=== PATIENT | male | born 1960 | race Hispanic/Latino ===

== ENCOUNTER 2017-05-12 10:08 | Inpatient (IN) | payer OTHER ==
[2017-05-12 10:11] VITALS: BMI 25.8
[2017-05-12] MEDS ORDERED: Lidocaine 2% Inj (20ml) ONE (10:15)
[2017-05-12] MEDS ORDERED: Midazolam 2 MG/2 ML VIAL ONE ×2 (10:17→10:39)
[2017-05-12] MEDS ORDERED: Iodixanol 320 MG/ML 200 ML BOTTLE IV ONE ×2 (10:18→11:06)
[2017-05-12] MEDS ORDERED: HEPARIN SODIUM/NS 2,000 ML IV ONE (10:18)
[2017-05-12] MEDS ORDERED: Iodixanol 320 MG/ML 100 ML BOTTLE IV ONE (10:18)
[2017-05-12] MEDS ORDERED: Metoprolol 1 mg/ml Inj IVP ONE ×2 (10:21→10:25)
[2017-05-12 10:28] LABS: BASO # 0.04 K/mm3 (0.0-2.0); BASO % 0.3 % (0.0-3.0); EOS # 0.1 (0.0-0.7); GRAN # 7.97 (1.4-6.5); GRAN % 64.4 % (50.0-68.0); HEMOGLOBIN 16.8 g/dL (14.0-18.0); LYMPH # 3.3 (1.2-3.4); LYMPH % 26.3 % (22.0-35.0); MEAN CELL VOLUME 88.1 fl (80.0-105.0); MEAN CORPUSCULAR HEMOGLOBIN 30.8 pg (25.0-35.0); MEAN CORPUSCULAR HGB CONC 34.9 g/dl (31.0-37.0); MEAN PLATELET VOLUME 9.8 fl (7.0-11.0); RBC 5.46 10^6/uL (3.5-6.1); RED CELL DISTRIBUTION WIDTH 13.5 % (11.5-14.5); WHITE BLOOD COUNT 12.4 10^3/ul (4.5-11.0)
--- NOTE | 2017-05-12 10:33 | ED PDOC ---
Arrival/HPI - General Chief Complaint: Chest Pain Time Seen by Provider: 05/12/17 10:09 Historian: Patient - History of Present Illness Time/Duration: Other (Last night) Symptom Onset: Sudden Symptom Course: Worsening Quality: Aching Severity Level: Severe Activities at Onset: Rest Associated Symptoms (Text): 05/12/17 10:30 Patient complains of waxing and waning aching chest pain beginning last night. Severe diaphoresis. No dyspnea. No nausea or vomiting. No dizziness. He has never experienced this previously. Past Medical History - Cardiac Hx Cardiac Disorders: No - Pulmonary Hx Respiratory Disorders: No - Neurological Hx Neurological Disorder: No - HEENT Hx HEENT Disorder: No - Renal Hx Renal Disorder: No - Endocrine/Metabolic Hx Hypothyroidism: Yes - Hematological/Oncological Hx Blood Disorders: No - Integumentary Hx Dermatological Disorder: No - Musculoskeletal/Rheumatological Hx Musculoskeletal Disorders: No - Gastrointestinal Hx Gastrointestinal Disorders: No - Genitourinary/Gynecological Hx Genitourinary Disorders: No - Psychiatric Hx Psychophysiologic Disorder: No Hx Substance Use: No Family/Social History - Physician Review Nursing Documentation Reviewed: Yes Family/Social History: Unknown Family HX Smoking Status: Never Smoked Hx Alcohol Use: Yes Frequency of alcohol use: Socially Hx Substance Use: No Allergies/Home Meds Allergies/Adverse Reactions: Allergies No Known Allergies Allergy (Verified 05/12/17 10:11) Home Medications: Home Meds Medication Instructions Recorded Confirmed Levothyroxine [Levoxyl] 0 mg PO DAILY 05/12/17 05/12/17 Review of Systems - Physician Review All systems were reviewed & negative as marked: Yes - Review of Systems Constitutional: absent: Fatigue, Fevers Respiratory: absent: SOB Cardiovascular: Chest Pain. absent: Syncope Gastrointestinal: absent: Abdominal Pain, Nausea, Vomiting Neurological: absent: Headache, Dizziness Physical Exam Vital Signs Temp Pulse Resp BP Pulse Ox 05/12/17 10:28 73 20 155/97 H 98 05/12/17 10:08 98 F 113 H 22 167/111 H 98 Temperature: Afebrile Blood Pressure: Hypertensive Pulse: Tachycardic Respiratory Rate: Normal Appearance: Positive for: Well-Appearing, Non-Toxic, Uncomfortable, Other ( Diaphoretic) Pain Distress: Severe Mental Status: Positive for: Alert and Oriented X 3 - Systems Exam Head: Present: Atraumatic, Normocephalic Pupils: Present: PERRL Extroacular Muscles: Present: EOMI Conjunctiva: Present: Normal Mouth: Present: Moist Mucous Membranes Pharnyx: No: ERYTHEMA, EXUDATE, TONSILS ENLARGED Neck: Present: Normal Range of Motion Respiratory/Chest: Present: Clear to Auscultation, Good Air Exchange, Decreased Breath Sounds. No: Respiratory Distress, Accessory Muscle Use Cardiovascular: Present: Regular Rate and Rhythm, Normal S1, S2, Tachycardic. No: Murmurs Abdomen: Present: Normal Bowel Sounds. No: Tenderness, Distention, Peritoneal Signs, Rebound, Guarding Upper Extremity: Present: Normal Inspection. No: Cyanosis, Edema Lower Extremity: Present: Normal Inspection. No: Edema Neurological: Present: GCS=15, CN II-XII Intact, Speech Normal Skin: Present: Warm, Normal Color, Diaphoretic. No: Dry, Rashes Psychiatric: Present: Alert, Oriented x 3, Normal Insight, Normal Concentration Medical Decision Making ED Course and Treatment: 05/12/17 10:32 EKG shows normal sinus rhythm rate approximately [address]ations V2 through V6. A code heart was called immediately upon the patient's arrival - RAD Interpretation Radiology Orders: 05/12/17 10:24 CHEST PORTABLE [RAD] Stat - Medication Orders Current Medication Orders: Atorvastatin Calcium (Lipitor) 80 mg PO DIN ALYCE Discontinued Medications Aspirin (Aspirin) 325 mg PO STAT STA Stop: 05/12/17 10:24 Heparin Sodium (Porcine) (Heparin) 5,000 units IVP STAT ONE PRN Reason: Protocol Stop: 05/12/17 10:27 Metoprolol Tartrate (Lopressor) 5 mg IVP ONCE ONE Stop: 05/12/17 10:26 Ticagrelor (Brilinta) 180 mg PO STAT STA Stop: 05/12/17 10:27 Disposition/Present on Arrival - Present on Arrival Any Indicators Present on Arrival: No History of DVT/PE: No History of Uncontrolled Diabetes: No Urinary Catheter: No History of Decub. Ulcer: No History Surgical Site Infection Following: None - Disposition Have Diagnosis and Disposition been Completed?: Yes Diagnosis: Myocardial infarction Disposition: HOSPITALIZED Disposition Time: 10:33 Patient Plan: Admission, ICU Condition: CRIT[facility] - Follow up with primary
[2017-05-12 10:35] LABS: PARTIAL THROMBOPLASTIN TIME 28.3 Seconds (25.1-36.5); PROTHROMBIN TIME 11.5 SECONDS (9.4-12.5)
[2017-05-12 10:40] LABS: ALB/GLOB RATIO 1.5 (1.1-1.8); ALBUMIN 4.5 g/dL (3.0-4.8); ALT/SGPT 50 U/L (7-56); AST/SGOT 29 U/L (17-59); BLOOD UREA NITROGEN 12 mg/dL (7-21); CALCIUM 10.8 mg/dL (8.4-10.5); GFR AFRICAN-AMERICAN > 60; GFR NON-AFRICAN AMERICAN > 60; VENOUS BLOOD GAS PO2 28 mm/Hg (30-55); VENOUS BLOOD PH 7.34 (7.32-7.43)
--- NOTE | 2017-05-12 10:43 | CP.PCM.PCO ---
Subjective - Physician Review Events Since Last Encounter (Free Text): 05/12/17 10:39 Code Heart Code Heart was called on patient at approximately 10:10am. Rapid response team responded immediately. STEMI seen on EKG and immigration associate. BP elevated but stable and patient was awake and alert. Dr. Valdez, Buckle Attaching Machine Operator was notified. Patient was promptly wheeled to dental lab technician by ED and RR team. Dr. Valdez was present upon patient arrival to dental lab technician. Skye Jacobo PGY2 05/12/17 10:43
[2017-05-12 10:55] LABS: TROPONIN I 0.21 ng/mL
[2017-05-12] MEDS ORDERED: Amiodarone 150 mg/D5W 100 ml 0 MG/0 ML BAG ONE (11:00)
[2017-05-12] MEDS ORDERED: Eptifibatide 20 mg/10mL Inj IVP ONE (11:08)
[2017-05-12] MEDS ORDERED: Eptifibatide 0.75 mg/ml 75 MG/100 ML BOTTLE IV ONE (11:08)
--- NOTE | 2017-05-12 11:20 | RAD ---
HISTORY: cp COMPARISON: No prior. FINDINGS: LUNGS: No active pulmonary disease. PLEURA: No significant pleural effusion identified, no pneumothorax apparent. CARDIOVASCULAR: Normal. OSSEOUS STRUCTURES: No significant abnormalities. VISUALIZED UPPER ABDOMEN: Normal. OTHER FINDINGS: None. IMPRESSION: No active disease.
[2017-05-12 12:21] LABS: VENOUS BLOOD GAS BASE EXCESS -1.9 mmol/L (0.0-2.0); VENOUS BLOOD GAS PO2 99 mm/Hg (30-55); VENOUS BLOOD PH 7.29 (7.32-7.43)
[2017-05-12 13:01] LABS: TROPONIN I 40.7 ng/mL
[2017-05-12 13:49] LABS: CK MB% 5.2 % (2.5-3.0)
--- NOTE | 2017-05-12 13:52 | CP.PCM.CON ---
History of Present Illness - History of Present Illness History of Present Illness: CRITICAL CARE CONSULT NOTE HPI Patient is 56yo male without sig PMHx, presented with chest pain that woke him up from sleep yesterday several times. Pt notes the chest pain is midsternal, non radiating without alleviating or aggravating factors. Pt denies sob, palpitations, MARINO, dizziness. Endorses diaphoresis. Pt's EKG in ER showed GISSEL V2- V6, code heart was called, patient taken to labeler emergently. Pt received 2 stents to mLAD. Currently afebrile, HD stable, comfortable in NAD. PMHx as above PSHx as above Meds NONE Allergies NKDA FHx NC Social former smoker 1pk per day x 20y, quit 20y ago, Review of Systems - Review of Systems Review of Systems: as per HPI Past Patient History - Past Social History Smoking Status: Never Smoked - CARDIAC Hx Cardiac Disorders: No - PULMONARY Hx Respiratory Disorders: No - NEUROLOGICAL Hx Neurological Disorder: No - HEENT Hx HEENT Problems: No - RENAL Hx Chronic Kidney Disease: No - ENDOCRINE/METABOLIC Hx Hypothyroidism: Yes - HEMATOLOGICAL/ONCOLOGICAL Hx Blood Disorders: No - INTEGUMENTARY Hx Dermatological Problems: No - MUSCULOSKELETAL/RHEUMATOLOGICAL Hx Musculoskeletal Disorders: No - GASTROINTESTINAL Hx Gastrointestinal Disorders: No - GENITOURINARY/GYNECOLOGICAL Hx Genitourinary Disorders: No - PSYCHIATRIC Hx Psychophysiologic Disorder: No Hx Substance Use: No - SURGICAL HISTORY Hx Surgeries: No Meds Allergies/Adverse Reactions: Allergies Allergy/AdvReac Type Severity Reaction Status Date / Time No Known Allergies Allergy Verified 05/12/17 10:11 - Medications Medications: Current Medications Acetaminophen (Tylenol 325mg Tab) 650 mg PO Q4H PRN PRN Reason: Pain, Mild (1-3) Alprazolam (Xanax) 0.25 mg PO BID PRN PRN Reason: Anxiety Stop: 05/19/17 11:27 Aspirin (Ecotrin) 81 mg PO DAILY [facility] Atorvastatin Calcium (Lipitor) 80 mg PO DIN [facility] Docusate Sodium (Colace) 100 mg PO BID [facility] Eptifibatide (Integrilin) 75 mg in 100 mls @ 6.169 mls/hr IV .[id number] ALYCE; 1 MCG/KG/MIN PRN Reason: Protocol Sodium Chloride (Sodium Chloride 0.9%) 1,000 mls @ 100 mls/hr IV .Q10H ALYCE Stop: 05/12/17 17:31 Levothyroxine Sodium (Synthroid) 25 mcg PO 0600 [facility] Lisinopril (Zestril) 5 mg PO DAILY [facility] Metoprolol Tartrate (Lopressor) 25 mg PO Q12H [facility] Ticagrelor (Brilinta) 90 mg PO Q12H [facility] Zolpidem Tartrate (Ambien) 5 mg PO HS PRN PRN Reason: Insomnia Physical Exam - Constitutional Appears: Non-toxic, No Acute Distress - Head Exam Head Exam: NORMAL INSPECTION - Eye Exam Eye Exam: Normal appearance - ENT Exam ENT Exam: Mucous Membranes Moist - Respiratory Exam Respiratory Exam: Clear to Auscultation Bilateral, NORMAL BREATHING PATTERN - Cardiovascular Exam Cardiovascular Exam: REGULAR RHYTHM, +S1, +S2 - GI/Abdominal Exam GI & Abdominal Exam: Normal Bowel Sounds, Soft - Extremities Exam Extremities exam: Positive for: normal inspection - Back Exam Back exam: NORMAL INSPECTION - Neurological Exam Neurological exam: Alert, CN II-XII Intact, Oriented x3 Results - Vital Signs Recent Vital Signs: Last Vital Signs Temp 98 F 05/12/17 10:08 Pulse 73 05/12/17 10:28 Resp 20 05/12/17 10:28 BP 155/97 H 05/12/17 10:28 Pulse Ox 98 05/12/17 10:28 - Labs Result Diagrams: 05/12/17 10:20 05/12/17 10:20 Labs: Laboratory Results - last 24 hr 05/12/17 05/12/17 05/12/17 12:10 12:10 12:10 pO2 99 H VBG pH 7.29 L VBG pCO2 53.0 VBG HCO3 25.5 VBG Total CO2 27.1 VBG O2 Sat (Calc) 98.5 H VBG Base Excess -1.9 L VBG Potassium 4.1 Sodium 139.0 Chloride 108.0 H Glucose 127 H Lactate 2.8 H FiO2 21.0 Lactate Dehydrogenase 1012 H Total Creatine Kinase 2406 H Troponin I 40.70 H* D Venous Blood Potassium 4.1 Blood Type Confirm A POSITIVE Assessment & Plan - Assessment and Plan (Free Text) Assessment: 56yo male a/w STEMI STEMI CP - currentyl afebrile, HD stable, comfortable, In NAD, reports CP free - s/p 2 stents to mLAD Recomehd: - supp o2 as needed - panculture - BP control - ASA, Brillinta, Statin - BB - Integrillin drip for 18hr as per cardiology - ECHO - check HgbA1C, lipid panel - GI ppx - DVT ppx
--- NOTE | 2017-05-12 14:41 | CARD ---
APPROVED REPORT EKG Measurement Heart [id number] TN 142P50 [id number] <Conclusion> RSR Acute anterior AR IMI, age unknown LAD STTW changes c/w injury/AR RVCD
--- NOTE | 2017-05-12 15:31 | CARD ---
APPROVED REPORT EKG Measurement Heart [id number] MN 150P29 [id number] <Conclusion> Normal sinus rhythm Left axis deviation, LAHB Inferior infarct, age undetermined Acute anteroseptal infarct, evolving Abnormal ECG
--- NOTE | 2017-05-12 15:52 | CARDCATH ---
PROCEDURE DATE: 05/12/2017 PROCEDURES 1. Selective left and right coronary angiography. 2. Left ventriculography. 3. Percutaneous coronary intervention of proximal and mid left anterior descending with drug-eluting stents. 4. Right femoral arteriography. 5. Left anterior descending thrombectomy. 6. AngioSeal deployment. HISTORY: This is a 56-year-old man with a history of remote tobacco abuse who presented to the Emergency Room with stuttering chest pain for approximately 10 hours. Upon arrival, he was noted to have ST elevations in the anterior leads and was actively having chest pain. Emergency catheterization was recommended. INDICATION: Acute anterior wall myocardial infarction. FINDINGS HEMODYNAMICS: The aortic pressure was 140/70, left ventricular pressure of 140/30. CORONARY ANATOMY 1. The left main stem was normal. 2. The left anterior descending artery had an eccentric 70% stenosis in the very proximal segment followed by an ectatic area; following this, the vessel is totally occluded as a takeoff of a moderate-sized diagonal branch. The diagonal branch had a long 80% stenosis present. The distal LAD filled faintly with the right to left collaterals. 3. Left circumflex artery gave rise to two obtuse marginal branches, which are of moderate size and had no significant disease. 4. Right coronary artery was dominant and normal. LEFT VENTRICULOGRAPHY: A hand injection was performed in the left ventricle revealing severe distal anterolateral and apical hypokinesis with an overall ejection fraction of 35%. CURRENT INTERVENTION: Given the above findings, attempted PCI of the LAD was then performed. Total occlusion of the LAD was successfully crossed with the use of a cougar wire. Following this, initial inflations were performed with a 2.0 x 12 mm balloon. Following this, the balloon catheter was removed and a 3.0 x 26 mm Resolute drug-eluting stent was advanced and deployed to 14 atmospheres for 30 seconds. There was 0% residual stenosis present at the site of the lesion. Following this, the proximal lesion was treated with placement of a 3.5 x 9 mm Resolute drug-eluting stent. This was inflated to 14 atmospheres for 30 seconds as well. After this, there appeared to be evidence of haziness and probable thrombus in the ectatic segment in the late proximal segment of the vessel. A Pronto thrombectomy catheter was then advanced over the wire and multiple passes made; however, no significant thrombus was retrieved. The patient was placed on IV anticoagulant. Following this, the attempts were then made to intervene on the diagonal lesion which arose at the proximal segment of the stent. The diagonal was successfully crossed with a Lorraine wire; however, attempts to advance the 2-0 balloon were unsuccessful. Following this, a 1.5 mm balloon was then advanced over the wire, but cannot enter via diagonal branch. This appeared to be impinged by the LAD stent. In order to avoid disruption of the LAD stent, diagonal intervention was not pursued any further. Final angiography reveals [place] grade II to III flow in the distal vessel with 0% residual stenosis at both treated lesions. RIGHT FEMORAL ARTERIOGRAPHY: This revealed appropriate level of arterial puncture with no evidence of significant disease. The puncture site was then closed with deployment of an AngioSeal device. CONCLUSIONS 1. Acute anterior wall myocardial infraction secondary to LAD occlusion with both proximal and mid vessel disease. 2. Moderately reduced LV systolic function. 3. Successful PCI of proximal mid LAD with drug-eluting stent as described above. RECOMMENDATIONS: Given the above findings, standard post-myocardial infarction care will be continued. IV Integrilin will be continued for 18 hours. Serial enzymes and electrocardiograms will be obtained. The patient has been started on aspirin and Brilinta, which will be continued. Standard therapy with beta-blockers, statins and afterload reduction agents will be planned as well. Nolan Vásquez MD MTDEmilia
[2017-05-12] MEDS: Eptifibatide 0.75 mg/ml 75 MG/100 ML BOTTLE IV SCH (17:19)
[2017-05-12] MEDS: Sodium Chloride 0.9% 1,000 ML IV SCH (17:26)
[2017-05-12] MEDS ORDERED: Pneumococcal 23-Valent Vaccine IM ONE (18:29)
[2017-05-12] MEDS ORDERED: Influenza Vaccine 60 mcg/0.5 mL SYR (4YR UP) IM ONE (18:29)
[2017-05-12] MEDS ORDERED: Morphine 2 mg/ml ISec IVP STA (19:36)
--- NOTE | 2017-05-12 21:46 | CON ---
DATE: REQUESTING PHYSICIAN: Yash Jaimes MD REASON FOR CONSULTATION: Acute myocardial infarction. HISTORY OF PRESENT ILLNESS: This is a 56-year-old man with remote tobacco abuse history and history of hypothyroidism, who presents to the Emergency Room with stuttering chest pain pattern. His EKG showed ST elevations anteriorly and emergency catheterization was advised. He denies any prior cardiac history. He states he did have some discomfort last week when shoveling snow, but did not seek medical attention at that time. Earlier this morning, he had severe retrosternal chest pain, which waxed and waned. It, however, intensified earlier this morning and presents to the Emergency Room. He was a smoker, but quit nearly 20 years ago. He has not hypertensive or diabetic. He believes his cholesterol is normal. He has no family history of premature heart disease. PAST MEDICAL HISTORY: Notable only for hypothyroidism. He also underwent a prior cholecystectomy as well as right knee surgery. MEDICATIONS: At home, include Synthroid 25 mcg daily. ALLERGIES: NONE. SOCIAL HISTORY: As mentioned, he is retired. FAMILY HISTORY: Both parents are from age-related illness. REVIEW OF SYSTEMS: A 10-point review of systems is otherwise relatively unremarkable. PHYSICAL EXAMINATION: GENERAL: He is an anxious-appearing middle-aged man. VITAL SIGNS: His blood pressure was 140/80, with a pulse of 90, respirations are 16. He is afebrile. HEENT: No JVD. CHEST: Few scattered rhonchi. HEART: PMI in normal position. No pathology or gallops noted. ABDOMEN: Soft and nontender, normoactive bowel sounds. EXTREMITIES: No edema. SKIN: Warm and dry. PSYCHIATRIC: Normal mood and affect. NEUROLOGIC: Alert and oriented x3. No gross motor or sensory deficits appreciable. DIAGNOSTIC DATA: Initial CK is 87. Troponin is 0.21. BUN and creatinine are 12 and 0.9. White count 12.4, hemoglobin and hematocrit are 16.8 and 48.1, with a platelet count of 304,000. Chest x-ray is pending. Electrocardiogram revealed sinus rhythm with ST elevations across the precordium. IMPRESSION: Anterior myocardial infarction. PLAN: The patient will be brought emergently to the catheterization lab and will undergo emergent angiography and PCI of whatever lesion that is found suitable. Risks and benefits were discussed in detail with the patient, he has agreeable to proceed. Further plans will be made based on it results. Nolan Vásquez MD
[2017-05-13] MEDS: Eptifibatide 0.75 mg/ml 75 MG/100 ML BOTTLE IV SCH (02:16)
[2017-05-13 04:05] LABS: BLOOD UREA NITROGEN 12 mg/dL (7-21); CALCIUM 9.6 mg/dL (8.4-10.5); GFR AFRICAN-AMERICAN > 60; GFR NON-AFRICAN AMERICAN > 60
[2017-05-13] MEDS: Sodium Chloride 0.9% 1,000 ML IV SCH (04:23)
[2017-05-13 04:40] LABS: CK MB% 7.8 % (2.5-3.0)
[2017-05-13 04:41] LABS: BASO # 0.01 K/mm3 (0.0-2.0); BASO % 0.1 % (0.0-3.0); EOS % 0.1 % (1.5-5.0); GRAN # 11.49 (1.4-6.5); GRAN % 84.2 % (50.0-68.0); LYMPH # 1.2 (1.2-3.4); LYMPH % 9.1 % (22.0-35.0); MEAN CELL VOLUME 88.1 fl (80.0-105.0); MEAN CORPUSCULAR HEMOGLOBIN 30.2 pg (25.0-35.0); MEAN CORPUSCULAR HGB CONC 34.2 g/dl (31.0-37.0); MONO # 0.9 (0.1-0.6); MONO % 6.5 % (1.0-6.0); RBC 4.64 10^6/uL (3.5-6.1); RED CELL DISTRIBUTION WIDTH 13.7 % (11.5-14.5); WHITE BLOOD COUNT 13.7 10^3/ul (4.5-11.0)
[2017-05-13] MEDS: Levothyroxine 25 MCG TAB PO SCH (05:07)
[2017-05-13] MEDS: Pantoprazole 40 mg EC Tab PO SCH (05:07)
--- NOTE | 2017-05-13 08:25 | CP.PCM.PN ---
Subjective - Date & Time of Evaluation Date of Evaluation: 05/13/17 Time of Evaluation: 07:00 - Subjective Subjective: Stable in ICU. No CP or SOB. He feels OK. Events of yesterday noted. case D/W Dr. Vásquez. V/S noted. RSR. BP elevated this AM PE: Lungs: clear Cor.: S1S2 Abd.: soft Ext.: no edema Neuro.: alert I/O= 2429/850 Labs noted: WBC= 13,700, trop= 91.8 ECGs 05/12 noted: RSR, Ev. anterior ME. Cines noted. Cath report noted. Residual Diag disease. Objective - Vital Signs/Intake and Output Vital Signs (last 24 hours): Temp Pulse Resp BP Pulse Ox 97.1 F L 67 18 150/107 H 97 05/12/17 18:11 05/13/17 05:15 05/13/17 05:15 05/13/17 05:00 05/13/17 05:15 Intake and Output: 05/13/17 05/13/17 06:59 18:59 Intake Total 1229 Output Total 400 Balance 829 - Medications Medications: Current Medications Acetaminophen (Tylenol 325mg Tab) 650 mg PO Q4H PRN PRN Reason: Pain, Mild (1-3) Last Admin: 05/12/17 16:01 Dose: 650 mg Alprazolam (Xanax) 0.25 mg PO BID PRN PRN Reason: Anxiety Stop: 05/19/17 11:27 Last Admin: 05/12/17 16:09 Dose: 0.25 mg Aspirin (Ecotrin) 81 mg PO DAILY [facility] Atorvastatin Calcium (Lipitor) 80 mg PO DIN [facility] Last Admin: 05/12/17 16:02 Dose: 80 mg Docusate Sodium (Colace) 100 mg PO BID [facility] Last Admin: 05/12/17 18:35 Dose: 100 mg Eptifibatide (Integrilin) 75 mg in 100 mls @ 6.169 mls/hr IV .[id number] ALYCE; 1 MCG/KG/MIN PRN Reason: Protocol Last Admin: 05/13/17 02:16 Dose: 6.169 mls/hr Levothyroxine Sodium (Synthroid) 25 mcg PO 0600 [facility] Last Admin: 05/13/17 05:07 Dose: 25 mcg Lisinopril (Zestril) 5 mg PO DAILY [facility] Metoprolol Tartrate (Lopressor) 25 mg PO Q12H [facility] Last Admin: 05/12/17 23:50 Dose: 25 mg Pantoprazole Sodium (Protonix Ec Tab) 40 mg PO 0600 [facility] Last Admin: 05/13/17 05:07 Dose: 40 mg Ticagrelor (Brilinta) 90 mg PO Q12H [facility] Last Admin: 05/12/17 21:06 Dose: 90 mg Zolpidem Tartrate (Ambien) 5 mg PO HS PRN PRN Reason: Insomnia Last Admin: 05/12/17 21:06 Dose: 5 mg - Labs Labs: 05/13/17 03:40 05/13/17 03:40 PT 11.5 SECONDS (9.4-12.5) 05/12/17 10:20 INR 1.00 (0.93-1.08) 05/12/17 10:20 APTT 28.3 Seconds (25.1-36.5) 05/12/17 10:20 Assessment and Plan - Assessment and Plan (Free Text) Assessment: Chest Pain/Acute Anterior ME/PCI occluded LAD Residual Diagonal lesion HBP Former Remote Smoker Hypothyroidism H/O GB surgery H/O Knee surgery Plan: OOB as bubba. Tel bed. ASA, Brilinta (Min. 1 year) Metoprolol, lisinopril,atorvastatin Echocardiogram Out-pt F/U upon D/C with EF check in 3 months.
[2017-05-13 10:15] LABS: URINE BILIRUBIN SMALL (NEGATIVE); URINE BLOOD LARGE (NEGATIVE); URINE GLUCOSE (UA) NEGATIVE (NEGATIVE); URINE LEUKOCYTE ESTERASE NEGATIVE Leu/uL (NEGATIVE); URINE PROTEIN NEGATIVE mg/dL (<30 mg/dL)
[2017-05-13 10:40] LABS: URINE COLOR YELLOW (YELLOW)
[2017-05-13 10:42] LABS: URINE APPEARANCE SL CLOUDY (CLEAR); URINE BACTERIA TRACE (NEG); URINE EPITHELIAL CELLS 0 - 2 /hpf (0-5); URINE RBC TNTC /hpf (0-2)
--- NOTE | 2017-05-13 10:44 | CARD ---
APPROVED REPORT EKG Measurement Heart [id number] OR 150P32 [id number] <Conclusion> Normal sinus rhythm Left axis deviation Inferior infarct, age undetermined Anterior infarct, evolving pattern T wave abnormality, consider lateral ischemia Abnormal ECG
--- NOTE | 2017-05-13 17:27 | CARD ---
APPROVED REPORT EXAM: Two-dimensional and M-mode echocardiogram with Doppler and color Doppler. INDICATION [place] 2D DIMENSIONS Left Atrium (2D)3.4 (1.6-4.0cm)IVSd1.2 (0.7-1.1cm) LVDd3.9 (3.9-5.9cm)PWd1.2 (0.7-1.1cm) LVDs2.8 (2.5-4.0cm)FS (%) 28.6 % LVEF (%)55.8 (>50%) M-Mode DIMENSIONS Aortic Root2.80 (2.2-3.7cm)Aortic Cusp Exc.1.80 (1.5-2.0cm) Mitral Valve MV E Oltzvbwx51.6cm/sMV A Ctdspcbd95.4cm/sE/A ratio0.6 TDI E/Lateral E'0.0E/Medial E'0.0 Tricuspid Valve TR Peak Parakwed097sd/sRAP [id number] Peak Gr.10mmHg [id number] LEFT VENTRICLE The left ventricle is normal size. There is mild concentric left ventricular hypertrophy. The systolic function is moderately impaired. There is severe hypokinesis in the apical septal wall. RIGHT VENTRICLE The right ventricle is normal size. The right ventricular systolic function is normal. ATRIA The left atrium size is normal. The right atrium size is normal. The interatrial septum is intact with no evidence for an atrial septal defect. AORTIC VALVE The aortic valve is normal in structure. No aortic regurgitation is present. MITRAL VALVE The mitral valve is normal in structure. Mitral regurgitation is trace. TRICUSPID VALVE The tricuspid valve is normal in structure. There is no tricuspid valve regurgitation noted. GREAT VESSELS The aortic root is normal in size. The IVC is normal in size and collapses >50% with inspiration. PERICARDIAL EFFUSION There is no pleural effusion. There is no pericardial effusion. <Conclusion> Normal chamber size. Mild concentric LVH. Moderately reduced LV systolic function with severe apical septal hypokinesis. No valvular abnormalities noted.
[2017-05-14] MEDS: Levothyroxine 25 MCG TAB PO SCH (05:27)
[2017-05-14] MEDS: Pantoprazole 40 mg EC Tab PO SCH (05:27)
[2017-05-14 06:47] LABS: BLOOD UREA NITROGEN 12 mg/dL (7-21); CALCIUM 9.9 mg/dL (8.4-10.5); GFR AFRICAN-AMERICAN > 60; GFR NON-AFRICAN AMERICAN > 60; HDL CHOLESTEROL 36 mg/dL (29-60)
[2017-05-14 06:58] LABS: LDL CHOLESTEROL 61 mg/dL (0-129)
[2017-05-14] MEDS ORDERED: Naproxen 275 mg Tab PO PRN (07:53)
[2017-05-14] MEDS ORDERED: Naproxen 550 mg Tab PO PRN (07:55)
--- NOTE | 2017-05-14 17:46 | HP ---
CHIEF COMPLAINT AND HISTORY OF PRESENT ILLNESS: This is a 56-year-old male who came into the hospital with chest pain in a patient who had been diaphoretic. He says that the pain started about 3 days prior to coming into the hospital. The patient was found to have an DC and was taken to the laboratory aide. The patient had an acute anterior wall DC secondary to an LAD occlusion. The patient had a successful PCI of the proximal mid LAD with a drug-eluting stent. There is moderately reduced LV dysfunction. Patient states he is feeling better. He additionally had pain that was about 4 to 5 out of 10. He has no fevers or chills. No nausea, no vomiting. This morning, he says he feels some discomfort in the right groin where he had the procedure, but otherwise feels well. No chest pain. He does have a headache. There is no dysuria, frequency, or nocturia. REVIEW OF SYMPTOMS: All other review of symptoms of symptoms are within normal limits except that was mentioned. ALLERGIES: NO KNOWN DRUG ALLERGIES. HOME MEDICATIONS: Levoxyl. SOCIAL HISTORY: He does not smoke. He drinks socially. PAST MEDICAL HISTORY: Hypothyroidism. PAST SURGICAL HISTORY: Cholecystectomy. PHYSICAL EXAMINATION: VITAL SIGNS: He has a temperature of 97.9, pulse of 85, blood pressure 128/85, respirations 20, O2 saturation 96%. Height is 5 feet 8 inches. Weight is 162 pounds. BMI is 24.6. GENERAL: The patient lying in bed, uncomfortable, and in no acute distress. HEENT: Atraumatic and normocephalic. Anicteric sclerae. Moist mucosa. [place] conjunctivae. No oral lesions. NECK: No JVD, anterior and posterior adenopathy, thyromegaly, or bruits. CARDIOVASCULAR: S1 and S2 regular. No murmur, rubs, or gallop. LUNGS: Clear to auscultation bilaterally. No wheezes, rales, or rhonchi. ABDOMEN: Bowel sounds are positive. Soft, nontender and nondistended. No hepatosplenomegaly. No rebound and no guarding. EXTREMITIES: No cyanosis, clubbing, or edema. NEUROLOGIC: No facial asymmetry. Tongue is midline. No vulva deviation. Power is 5/5 upper extremity and lower extremity. Sensation intact in upper extremity and lower extremity. PSYCHIATRIC: He is awake, alert and oriented x3. No anxiety or depression. He has normal affect. GENITOURINARY: No CVA tenderness. VASCULAR: 2+ pulses in the carotid pulses and pedal pulses. SKIN: No erythema or nodules. SPINE: Shows normal curvature. EXTREMITIES: No cyanosis and clubbing, no edema. In the left groin, there are no signs of a hematoma. LABORATORY DATA: White count of 12.4, repeat is 13.7; hemoglobin 16.8. INR is 1. Chemistry shows a sodium of 140. Creatinine is 0.8. His troponin maximum is 175. Patient's LDL is 61. Echo done shows a normal chamber size. There is mild concentric LVH. There is moderately reduced LV systolic function. Chest x-ray done has no active disease. EKG shows sinus rhythm, left axis deviation. ST elevation across the precordial leads. ASSESSMENT: 1. ST elevation myocardial infarction. 2. Coronary artery disease with percutaneous coronary intervention of left anterior descending with drug eluting stent. 3. Hypothyroidism. PLAN: The patient was found to have a ST elevation myocardial infarction. There were marked ST changes in V2 through V6. Patient was taken to the laboratory aide and had intervention done. He is feeling better. He is complaining of a headache. The patient was given Ambien for sleep. Patient is going to be on Brilinta. He is going to continue with aspirin daily. He is on Lipitor for dyslipidemia. The patient is on Synthroid for hypothyroidism. He is going to be on Zestril for hypertension. Patient is on the heart healthy diet. Pete De MD
[2017-05-15 01:20] VITALS: RESP 16
--- NOTE | 2017-05-15 01:38 | PN ---
DATE: 05/14/2017 SUBJECTIVE: The patient is seen sitting in a chair on telemetry. He states he is comfortable. He denies any chest pain or exertional dyspnea. He did some ambulating yesterday. His echocardiogram reveals normal chamber size with mild concentric LVH and moderately reduced LV systolic function with severe apical and septal hypokinesis. No significant valvular abnormalities were noted. PHYSICAL EXAMINATION: VITAL SIGNS: His blood pressure is 120/82 with a pulse of 80 and sinus respirations of 16. He is afebrile. HEENT: No JVD. CHEST: Clear to auscultation and percussion. HEART: No pathological murmur or gallops noted. ABDOMEN: Soft, nontender with bowel sounds. EXTREMITIES: No edema. DIAGNOSTIC DATA: Potassium 4.0, BUN and creatinine are 12 and 0.8, glucose is 119. Troponin is 30.. CURRENT MEDICATIONS: Include aspirin once daily, Brilinta 90 mg q.12 hours, Lipitor 80 mg daily, metoprolol 25 mg q.12 hours, Protonix, Synthroid 25 mcg daily and Zestril 5 mg daily. IMPRESSION: Status post acute anterior wall myocardial infarction with sizeable acute damage and emergent percutaneous coronary intervention of left anterior descending, clinically stable at present. RECOMMENDATIONS: Increased ambulation is planned. Followup troponin for the morning will be checked. Repeat electrocardiogram performed as well. Referral to a cardiac rehabilitation program will be made. Post myocardial infarction restrictions were reviewed and the need for chronic followup was discussed as well. We will be happy to follow along as needed. Nolan Vásquez MD MTDD
[2017-05-15] MEDS: Pantoprazole 40 mg EC Tab PO SCH (05:18)
[2017-05-15] MEDS: Levothyroxine 25 MCG TAB PO SCH ×3 (05:18→07:23)
[2017-05-15 06:05] VITALS: TEMP 98; O2SAT 97
--- NOTE | 2017-05-15 08:55 | CP.PCM.PN ---
Subjective - Date & Time of Evaluation Date of Evaluation: 05/15/17 Time of Evaluation: 07:00 - Subjective Subjective: Stable on 2R. No CP or SOB. He feels OK. + amb. V/S noted. RSR. PE: Lungs: clear Cor.: S1S2 Abd.: soft Ext.: no edema Neuro.: alert Labs noted: Trop = 30, LDL = 61, etc ECGs 05/12 noted: RSR, Ev. anterior CT. Cines noted. Cath report noted. Residual Diag disease. Echo noted; Mod LVD with severe apical and septal HK Objective - Vital Signs/Intake and Output Vital Signs (last 24 hours): Temp Pulse Resp BP Pulse Ox 98.0 F 75 16 98/62 L 97 05/15/17 06:00 05/15/17 06:00 05/15/17 06:00 05/15/17 06:00 05/15/17 06:00 Intake and Output: 05/15/17 05/15/17 06:59 18:59 Intake Total 780 Balance 780 - Medications Medications: Current Medications Acetaminophen (Tylenol 325mg Tab) 650 mg PO Q4H PRN PRN Reason: Pain, Mild (1-3) Last Admin: 05/13/17 19:17 Dose: 650 mg Alprazolam (Xanax) 0.25 mg PO BID PRN PRN Reason: Anxiety Stop: 05/19/17 11:27 Last Admin: 05/12/17 16:09 Dose: 0.25 mg Aspirin (Ecotrin) 81 mg PO DAILY [facility] Last Admin: 05/14/17 09:33 Dose: 81 mg Atorvastatin Calcium (Lipitor) 40 mg PO DIN [facility] Docusate Sodium (Colace) 100 mg PO BID [facility] Last Admin: 05/14/17 17:22 Dose: 100 mg Levothyroxine Sodium (Synthroid) 25 mcg PO 0600 [facility] Last Admin: 05/15/17 07:23 Dose: 25 mcg Lisinopril (Zestril) 5 mg PO DAILY [facility] Last Admin: 05/14/17 09:33 Dose: 5 mg Metoprolol Succinate (Toprol Xl) 50 mg PO BRK [facility] Pantoprazole Sodium (Protonix Ec Tab) 40 mg PO 0600 [facility] Last Admin: 05/15/17 05:18 Dose: 40 mg Ticagrelor (Brilinta) 90 mg PO Q12H [facility] Last Admin: 05/14/17 22:52 Dose: 90 mg Zolpidem Tartrate (Ambien) 5 mg PO HS PRN PRN Reason: Insomnia Last Admin: 05/14/17 22:53 Dose: 5 mg - Labs Labs: 05/13/17 03:40 05/14/17 06:00 PT 11.5 SECONDS (9.4-12.5) 05/12/17 10:20 INR 1.00 (0.93-1.08) 05/12/17 10:20 APTT 28.3 Seconds (25.1-36.5) 05/12/17 10:20 Assessment and Plan - Assessment and Plan (Free Text) Assessment: Chest Pain/Acute Anterior CT/PCI occluded LAD Residual Diagonal lesion HBP Former Remote Smoker Hypothyroidism H/O GB surgery H/O Knee surgery Plan: OK for D/C later today. Cardiac meds: ASA 81, Brilinta 90 BID(Min. 1 year), metoprolol ER 50/day, lisinopril 5/day, atorvastatin 40/day Out-pt F/U upon D/C with EF check in 3 months. Low sat. fat diet C. rehab to be arranged.
[2017-05-15 09:07] VITALS: BP 118/76; PULSE 84
[2017-05-15] MEDS ORDERED: Metoprolol Succinate 50 mg XL Tab PO SCH (10:00)
--- NOTE | 2017-05-16 06:59 | DS ---
HISTORY OF PRESENT ILLNESS: This is a 56-year-old male who came into the hospital after he was found to have an ST elevation AR. The patient was taken to the slab worker by Dr. Vásquez and had stent placement in the LAD. He has improvement of his symptoms. The patient has been comfortable. He has been on his cardiac medication. He has no complaint of any headaches or dizziness. No nausea, no vomiting. No fevers or chills. Patient ambulating and eating well. He has a left groin that has some ecchymosis, but no signs of hematoma. PHYSICAL EXAMINATION: VITAL SIGNS: Temperature is 98, pulse is 75, blood pressure is 98/62, respirations 16 and O2 saturation 97%. GENERAL: The patient is lying in bed, flat, comfortable. HEENT: No oral lesion. Anicteric sclerae. Moist mucosa. NECK: No JVD, adenopathy, or thyromegaly. CARDIOVASCULAR: S1 and S2, regular. No murmurs, rubs, or gallops. LUNGS: Clear to auscultation bilaterally. No wheeze, rales, or rhonchi. ABDOMEN: Bowel sounds are positive, soft, nontender and nondistended. EXTREMITIES: No cyanosis, clubbing or edema. ASSESSMENT: 1. ST elevation myocardial infarction. 2. Coronary artery disease, status post percutaneous coronary intervention of left anterior descending with drug-eluting stent. 3. Hypothyroidism. PLAN: The patient is feeling comfortable. He is going to continue with aspirin and Brilinta. He is on Lipitor for dyslipidemia and Zestril for his AR. The patient is going to continue with Synthroid for hypothyroidism. He is on Ambien for sleep. He is going to be discharged. He will follow up with Dr. Vásquez. Condition is stable. Activities, increase as tolerated. Follow up with Dr. Vásquez in 1 to 2 weeks. Follow up with Dr. Pete De in 1 to 2 weeks. Pete De MD
== END 2017-05-15 12:24 | disposition home or self-care (01) | DRG 247 ==
LOC: ED 10:08 → CATH 10:27 → ICU 11:40 → 2RNO 05-13 17:15
PROVIDERS: ADMIT Internal Medicine Cardiovascular Disease; ATTEND Internal Medicine Nephrology
PROC: 027034Z Dilation of Coronary Artery, One Artery with Drug-eluting Intraluminal Device, Percutaneous Approach (ICD-10-PCS; principal; 2017-05-12)
PROC: 02C03ZZ Extirpation of Matter from Coronary Artery, One Artery, Percutaneous Approach (ICD-10-PCS; 2017-05-12)
PROC: 4A023N7 Measurement of Cardiac Sampling and Pressure, Left Heart, Percutaneous Approach (ICD-10-PCS; 2017-05-12)
PROC: B211YZZ Fluoroscopy of Multiple Coronary Arteries using Other Contrast (ICD-10-PCS; 2017-05-12)
PROC: B215YZZ Fluoroscopy of Left Heart using Other Contrast (ICD-10-PCS; 2017-05-12)
PROC: 3E033PZ Introduction of Platelet Inhibitor into Peripheral Vein, Percutaneous Approach (ICD-10-PCS; 2017-05-12)
DX: I21.09 ST elevation (STEMI) myocardial infarction involving other coronary artery of anterior wall (principal); I25.82 Chronic total occlusion of coronary artery; I25.10 Atherosclerotic heart disease of native coronary artery without angina pectoris; E03.9 Hypothyroidism, unspecified; Z87.891 Personal history of nicotine dependence; Z90.49 Acquired absence of other specified parts of digestive tract